=== PATIENT | female | born 1980 | race Caucasian/White ===

== ENCOUNTER 2017-05-03 16:54 | Emergency (ER) | payer SELFPAY ==
[2017-05-03 17:12] VITALS: TEMP 98.1; BMI 32.3
--- NOTE | 2017-05-03 18:05 | PDOC ---
History of Present Illness - History of Present Illness Initial Comments: 36 year old female with PMH of fibroids, menorrhagia, dysmenorrhea, and tubal ligation presenting with 3 weeks of lower back pain and new lower abdominal pain. She also just began her menstrual cycle. She has had worse clotting and dysmennorhea over the past 6 months but hasn't been able to see her obgyn because of her loss of insurance. She claims that the tubal ligation was performed to help with her menorrhagia and dysmenorrhea but it actually has made it worse. Denies fevers, chills, vomiting, diarrhea, constipation, chest pain, or any other symptoms. She took 4 Midol today without relif of her symptoms. She take no medications. 05/03/17 19:09 <Alan Narvaez - Last Filed: 05/03/17 20:12> <Rajani Bazzi - Last Filed: 05/04/17 00:54> - General Chief Complaint: Pain Stated Complaint: ACUTE, PAIN Time Seen by Provider: 05/03/17 18:05 Past History - Past Medical History Other medical history: fibroids - Psycho/Social/Smoking Cessation Hx Anxiety: No Suicidal Ideation: No Smoking History: Never smoked Have you smoked in the past 12 months: No Information on smoking cessation initiated: No Hx Alcohol Use: No Drug/Substance Use Hx: No Substance Use Type: None <Alan Narvaez - Last Filed: 05/03/17 20:12> <Rajani Bazzi - Last Filed: 05/04/17 00:54> - Past Medical History Allergies/Adverse Reactions: Allergies Allergy/AdvReac Type Severity Reaction Status Date / Time No Known Allergies Allergy Verified 05/03/17 17:12 Home Medications: Ambulatory Orders Oxycodone HCl/Acetaminophen [Percocet 5-325 mg Tablet] 1 tab PO Q8H PRN #5 tablet MDD 3 tablets 05/04/17 Review of Systems - Review of Systems Constitutional: No: Chills, Diaphoresis, Fever HEENTM: No: Blurred Vision, Tearing, Recent change in vision Respiratory: No: Shortness of Breath, SOB with Exertion ABD/GI: Yes: Nausea. No: Constipated, Diarrhea, Vomiting <Alan Narvaez - Last Filed: 05/03/17 20:12> *Physical Exam - Vital Signs Last Vital Signs Temp Pulse Resp BP Pulse Ox 98.1 F 77 19 137/69 99 05/03/17 17:10 05/03/17 17:10 05/03/17 17:10 05/03/17 17:10 05/03/17 17:10 - Physical Exam General Appearance: Yes: Nourished, Appropriately Dressed, Apparent Distress, Mild Distress HEENT: positive: EOMI, BENJAMÍN, Normal Voice Neck: positive: Trachea midline, Normal Thyroid, Supple. negative: Tender, Rigid Respiratory/Chest: positive: Lungs Clear, Normal Breath Sounds. negative: Chest Tender Cardiovascular: positive: Regular Rhythm, Regular Rate, S1, S2. negative: Edema , Murmur Female Pelvic Exam: positive: normal external exam, cervical os closed, normal adnexa, other (blood in the vaginal vault. General pelvic tenderness but no CMT or adnexal fullness. ) Gastrointestinal/Abdominal: positive: Normal Bowel Sounds, Tender (Inferoir abdominal tenerness bilaterally. ) Musculoskeletal: positive: Other (Bilateal paraspinal muscular tendernes across her lower back) Extremity: positive: Normal Inspection, Normal Range of Motion Integumentary: positive: Normal Color, Dry, Warm Neurologic: positive: Fully Oriented, Alert, Normal Mood/Affect, Normal Response <Alan Narvaez - Last Filed: 05/03/17 20:12> - Vital Signs Last Vital Signs Temp Pulse Resp BP Pulse Ox 98.1 F 73 20 126/90 98 05/03/17 20:48 05/03/17 20:48 05/03/17 20:48 05/03/17 20:48 05/03/17 20:48 <Rajani Bazzi - Last Filed: 05/04/17 00:54> ED Treatment Course - LABORATORY CBC & Chemistry Diagram: 05/03/17 18:55 05/03/17 18:55 <Alan Narvaez - Last Filed: 05/03/17 20:12> - LABORATORY CBC & Chemistry Diagram: 05/03/17 18:55 05/03/17 18:55 - ADDITIONAL ORDERS Additional order review: Laboratory Results 05/03/17 05/03/17 18:55 18:55 Sodium 138 Potassium 4.3 Chloride 104 Carbon Dioxide 25 Anion Gap 9 BUN 12 Creatinine 0.7 Creat Clearance w eGFR > 60 Random Glucose 90 Calcium 9.3 Total Bilirubin 0.5 AST 19 ALT 17 Alkaline Phosphatase 74 Total Protein 8.1 Albumin 3.7 Lipase 229 Urine Color Ltyellow Urine Appearance Slcloudy Urine pH 5.0 Ur Specific Millry 1.010 Urine Protein Negative Urine Glucose (UA) Negative Urine Ketones Negative Urine Blood 3+ H Urine Nitrite Negative Urine Bilirubin Negative Urine Urobilinogen Negative Ur Leukocyte Esterase Negative Urine RBC 436 Urine WBC 15 Ur Epithelial Cells Rare Urine Bacteria Rare Urine Mucus Rare Urine HCG, Qual Negative 05/03/17 18:55 RBC 4.45 MCV 74.0 L MCHC 31.5 L RDW 16.8 H MPV 8.5 Neutrophils % 59.2 Lymphocytes % 28.0 Monocytes % 10.4 H Eosinophils % 1.9 Basophils % 0.5 - Medications Given in the ED: ED Medications Discontinued Medications Generic Name Dose Route Start Last Admin Trade Name Freq PRN Reason Stop Dose Admin Oxycodone/Acetaminophen 1 combo 05/03/17 20:12 05/03/17 20:47 Percocet 5/325 - PO 05/03/17 20:13 1 combo ONCE ONE Administration <Rajani Bazzi - Last Filed: 05/04/17 00:54> Medical Decision Making - Medical Decision Making 36 year old female with menorrhage, dysmenorrhea and abndominal/ back pain whoi shoudl be worked up broadly for pathology vs. abdominal pathology. Pelvic exam grossly normal, signed out to Jluis Cao pending upreg and US results. 05/03/17 19:32 05/03/17 20:13 <Alan Narvaez - Last Filed: 05/03/17 20:12> *DC/Admit/Observation/Transfer <Alan Narvaez - Last Filed: 05/03/17 20:12> - Discharge Dispostion Admit: No - Attestations Physician Attestion: 05/04/17 00:54 I, Dr. Rajani Bazzi MD, attest that this document has been prepared under my direction and personally reviewed by me in its entirety. I further attest, that it accurately reflects all work, treatment, procedures and medical decision -making performed by me. <Rajani Bazzi - Last Filed: 05/04/17 00:54> Diagnosis at time of Disposition: Pelvic pain - Discharge Dispostion Disposition: HOME Condition at time of disposition: Stable - Prescriptions Prescriptions: Oxycodone HCl/Acetaminophen [Percocet 5-325 mg Tablet] 1 tab PO Q8H PRN #5 tablet MDD 3 tablets PRN Reason: Pain Level 6-10 - Patient Instructions Additional Instructions: Return to the emergency department immediately for any new or concerning symptoms or if your symptoms get worse. You may take 600 mg of ibuprofen every 6 hours as needed for pain. If ibuprofen does not control your pain, you may take 1 tablet of Percocet every 8 hours as needed for pain. Please follow-up with your primary care doctor within 1-[address] Fong within 1-2 weeks.
--- NOTE | 2017-05-03 18:36 | PDOC ---
Attending Attestation - Resident Resident Name: Alan Narvaez - ED Attending Attestation I have performed the following: I have examined & evaluated the patient, The case was reviewed & discussed with the resident, I agree w/resident's findings & plan, Exceptions are as noted - HPI HPI: 05/03/17 18:27 36yo F hx fibroids and tubal ligation p/w pelvic pain radiating to the back for 2 days. LMP 2 days ago. Reports that her periods are always very painful and she can have heavy bleeding at times. Reports intermittent lightheadedness and a fall earlier today where she sat herself on the ground because she was so lightheaded. Denies head strike or LOC. Pt has seen Dr. Aysha Fong ([employer]) for this in the past but has no insurance currently and so has been unable to follow up. Denies fevers, chills, chest pain, shortness of breath, nausea, vomiting, diarrhea, lower extremity edema. - Physicial Exam PE: 05/03/17 18:31 GENERAL: Awake, alert, and fully oriented, in no acute distress HEAD: No signs of trauma EYES: PERRLA, EOMI, sclera anicteric, conjunctiva clear ENT: Auricles normal inspection, hearing grossly normal, nares patent, oropharynx clear without exudates. Moist mucosa NECK: Normal ROM, supple, no lymphadenopathy, JVD, or masses LUNGS: Breath sounds equal, clear to auscultation bilaterally. No wheezes, and no crackles HEART: Regular rate and rhythm, normal S1 and S2, no murmurs, rubs or gallops ABDOMEN: Soft, +RLQ ttp. Normoactive bowel sounds. No guarding, no rebound. No masses EXTREMITIES: Normal range of motion, no edema. No clubbing or cyanosis. No cords, erythema, or tenderness NEUROLOGICAL: Normal speech, cranial nerves intact, negative pronator drift, 5/ 5 strength in all 4 extremities, normal sensation to light touch in all 4 extremities, normal cerebellar exam, normal gait, normal reflexes and tone SKIN: Warm, Dry, normal turgor, no rashes or lesions noted. [employer] exam performed with Dr. Narvaez: normal external genitalia +blood in the vaginal vault. General pelvic tenderness, especially over uterus but no CMT or adnexal fullness. - Medical Decision Making 05/03/17 18:36 36-year-old female hx dysmenorrhea and menorrhea, fibroids, tubal ligation p/w pelvic pain and lightheadedness. Exam with blood in vault consistent with menstrual cycle as well as uterine ttp. Differential is wide and includes anemia 2/2 menorrhagia vs symptomatic fibroids vs ovarian cyst -UPT -labs -abd US -TVUS -UA -reassess 05/04/17 00:41 Abd US negative for pathology TVUS reveals multiple fibroids and no ovarian pathology Pain likely 2/2 dysmenorrhea and fibroids Pt slightly anemic to 10.4, likely 2/2 menstruation On re-evaluation, pt feels better, no longer lightheaded Reports pain improved with percocet Pt reports her insurance will be reinstated on 05/13 and at that point will follow up with Dr. Fong (her [employer]) I advised her to return to the ED if she has any new or worsening symptoms
[2017-05-03 19:25] LABS: BASOPHIL 0.5 % (0-2.0); EOSINOPHIL 1.9 % (0-4.5); MCH 23.3 pg (25.7-33.7); MCHC 31.5 g/dl (32.0-36.0); MEAN PLT VOLUME 8.5 fl (7.5-11.1); NEUTROPHILS 59.2 % (42.8-82.8); PLATELET COUNT 259 K/MM3 (134-434); RDW 16.8 % (11.6-15.6)
[2017-05-03 20:07] LABS: URINE APPEARANCE SLCLOUDY; URINE BILIRUBIN NEGATIVE (NEGATIVE); URINE BLOOD 3+ (NEGATIVE); URINE COLOR LTYELLOW; URINE GLUCOSE (UA) NEGATIVE (NEGATIVE); URINE KETONE NEGATIVE (NEGATIVE); URINE LEUK ESTERASE NEGATIVE (NEGATIVE); URINE NITRITE NEGATIVE (NEGATIVE); URINE PROTEIN NEGATIVE (NEGATIVE); URINE UROBILINOGEN NEGATIVE mg/dL (0.2-1.0)
[2017-05-03 20:08] LABS: ALBUMIN 3.7 g/dl (3.4-5.0); ANION GAP 9 (8-16); CALCIUM 9.3 mg/dL (8.5-10.1); CO2 25 mmol/L (21-32); CREATININE 0.7 mg/dL (0.55-1.02); GLUCOSE,RANDOM 90 mg/dL (74-106); SGOT/AST 19 U/L (15-37); SGPT/ALT 17 U/L (12-78)
[2017-05-03 20:10] LABS: ALK PHOS 74 U/L (45-117); BILIRUBIN,TOTAL 0.5 mg/dL (0.2-1.0); TOT PROT 8.1 g/dl (6.4-8.2)
[2017-05-03 20:29] LABS: URINE BACTERIA RARE /hpf (NONE SEEN); URINE MUCUS RARE; URINE RBC 436 /hpf (0-3); URINE WBC 15 /hpf (3-5)
[2017-05-03 20:48] VITALS: BP 126/90; PULSE 73
== END 2017-05-04 22:10 | disposition home or self-care (01) ==
LOC: SUPCPDRO 16:54 → JER 16:54
DX: N94.6 Dysmenorrhea, unspecified (principal); D25.9 Leiomyoma of uterus, unspecified
CPT/HCPCS: 36415; 76700-TC; 76830-TC; 80053; 81003; 81015; 83690; 84703; 85025; 99283-25

== ENCOUNTER 2021-02-02 21:47 | Emergency (ER) | payer OTHER ==
[2021-02-02 21:57] VITALS: BP 145/98; PULSE 71; TEMP 98.4; BMI 29.8
[2021-02-02] MEDS ORDERED: IBUPROFEN 600 MG TABLET (FP) PO ONE ×2 (22:07→22:08)
== END 2021-02-02 23:49 | disposition home or self-care (01) ==
LOC: FER 21:47
DX: N83.201 Unspecified ovarian cyst, right side (principal)
CPT/HCPCS: 76856-TC; 81003; 99284-25

== ENCOUNTER 2021-06-22 16:48 | Emergency (ER) | payer OTHER | END 2021-06-22 17:57 | disposition home or self-care (01) | LOC: FER 16:48 | DX: S63.634A Sprain of interphalangeal joint of right ring finger, initial encounter (principal); W22.09XA Striking against other stationary object, initial encounter | CPT/HCPCS: 73140-TC-RT-FY; 99281-25 ==